=== PATIENT | male | born 2005 | race Caucasian/White ===

== ENCOUNTER 2025-02-06 20:55 | Emergency (ER) | payer OTHER, BC ==
[~2025-02-06] VITALS: Ht 172.7 cm; Wt 73.0 kg
[2025-02-06 21:01] VITALS: O2SAT 98
[2025-02-06] MEDS: ACETAMINOPHEN 500MG TABLET PO ONE (22:33)
[2025-02-06] MEDS ORDERED: IBUP-2028 MT (23:21)
[2025-02-06 23:32] VITALS: BP 123/78; PULSE 67; RESP 16; TEMP 36.8; O2SAT 98
== END 2025-02-06 23:49 | disposition home or self-care (01) ==
LOC: ER 20:55
DX: M25.571 Pain in right ankle and joints of right foot (principal)
CPT/HCPCS: 73080; 73610; 99284